=== PATIENT | male | born 1975 ===

== ENCOUNTER 2018-01-11 05:10 | Emergency (ER) | payer OTHER ==
[2018-01-11 05:22] VITALS: PULSE 68; TEMP 97.8; O2SAT 100
[2018-01-11] MEDS ORDERED: Lidocaine 5% Patch TD STA (05:40)
[2018-01-11] MEDS ORDERED: Dexamethasone 4 mg/1 ml IM STA (05:40)
--- NOTE | 2018-01-11 05:50 | C.PDOC ---
History Of Present Illness Patient reports that he woke up at 0130 today with left lower back pain. Patient describes the pain as sharp and non-radiating, and is worsened with movement and walking. Denies fever, abdominal pain, numbness,weakness, trauma, vomiting, or dysuria. Time Seen by Provider: 01/11/18 05:23 Chief Complaint (Nursing): Back Pain History Per: Patient History/Exam Limitations: no limitations Onset/Duration Of Symptoms: Days Current Symptoms Are (Timing): Still Present Quality Of Discomfort: "Pain" Severity: Mild Pain Scale Rating Of: 5 Associated Symptoms: denies: Incontinence, New Weakness, New Numbness Exacerbating Factor(s): Turning, Movement Recent travel outside of the [place]: No Additional History Per: Patient (reports that he took two Advil PM at 0300 today with moderate relief. ) Past Medical History Reviewed: Historical Data, Nursing Documentation, Vital Signs Vital Signs: Last Vital Signs Temp 97.8 F 01/11/18 05:18 Pulse 68 01/11/18 05:18 Resp 18 01/11/18 05:18 BP 123/78 01/11/18 05:18 Pulse Ox 100 01/11/18 06:07 - Medical History PMH: No Chronic Diseases Surgical History: No Surg Hx Family History: States: No Known Family Hx - Social History Hx Tobacco Use: No Hx Alcohol Use: No Hx Substance Use: No - Immunization History Hx Tetanus Toxoid Vaccination: No Hx Influenza Vaccination: Yes Hx Pneumococcal Vaccination: No Review Of Systems Except As Marked, All Systems Reviewed And Found Negative. Physical Exam - Physical Exam Appears: Non-toxic, No Acute Distress Skin: Normal Color, Warm, No Rash Head: Atraumatic, Normacephalic Eye(s): bilateral: Normal Inspection Oral Mucosa: Moist Neck: Normal ROM, No Midline Cervical Tenderness, No Paracervical Tenderness, Supple Chest: Symmetrical, No Tenderness Cardiovascular: Rhythm Regular, No Friction Rub, No Murmur Respiratory: Normal Breath Sounds, No Rales, No Rhonchi, No Wheezing Gastrointestinal/Abdominal: Soft, No Tenderness Back: No Vertebral Tenderness (No midline tenderness), Muscle Spasm (left lower back) Extremity: Normal ROM, No Tenderness, No Swelling Pulses: Left Dorsalis Pedis: Normal, Right Dorsalis Pedis: Normal Neurological/Psych: Oriented x3, Normal Speech, Normal Motor Gait: Steady ED Course And Treatment O2 Sat by Pulse Oximetry: 100 (on RA) Pulse Ox Interpretation: Normal Medical Decision Making Medical Decision Making: On re-exam, the patient reports improvement of symptoms. Lungs are CTA, heart is RRR, abdomen is soft, non-tender and the patient is tolerating PO well. The patient is ambulatory in the ED with steady gait. Disposition - Disposition Referrals: [facility] [Outside] Disposition: HOME/ ROUTINE Disposition Time: 06:03 Condition: GOOD Additional Instructions: Follow up with the medical doctor within 1-2 days. Return if worsened. Prescriptions: Lidocaine 5% [Lidoderm] 1 patch TOP DAILY #7 patch Naproxen [Naprosyn] 500 mg PO BID #20 tab predniSONE [Prednisone] 10 mg PO BID #10 tab Instructions: Low Back Pain (DC) Forms: [facility] ([place]), Work Excuse - Clinical Impression Clinical Impression: Low back pain
[2018-01-11] MEDS ORDERED: Lidocaine 5% Patch TD ONE (06:24)
[2018-01-11 06:34] VITALS: BP 120/76; RESP 20
== END 2018-01-11 06:32 | disposition home or self-care (01) ==
LOC: C.ER 05:10
DX: M54.5 Low back pain (principal)
CPT/HCPCS: 96372; 99283; J1100